=== PATIENT | female | born 1975 | race Two or more races ===

== ENCOUNTER 2023-01-27 13:30 | Emergency (ER) | payer OTHER ==
[~2023-01-27] VITALS: Ht 157.5 cm; Wt 88.0 kg
[2023-01-27 14:20] VITALS: BP 135/74; PULSE 100; RESP 16; TEMP 97.8; O2SAT 97
[2023-01-27] MEDS ORDERED: KETOROLAC TROMETH 60MG/2ML VIAL IM ONE (15:15)
[2023-01-27] MEDS ORDERED: IBUP-1456 PO (15:41)
== END 2023-01-27 15:44 | disposition home or self-care (01) ==
LOC: ER 13:30
DX: M77.8 Other enthesopathies, not elsewhere classified (principal); M19.021 Primary osteoarthritis, right elbow
CPT/HCPCS: 73080; 96372; 99283; J1885